=== PATIENT | female | born 1955 | race Caucasian/White ===

== ENCOUNTER → 2017-01-19 | Outpatient (CLI) | payer OTHER ==
--- NOTE | 2017-01-19 11:46 | KCIC ---
PROCEDURE Bilateral digital mammogram with CAD HISTORY Routine screening TECHNIQUE Bilateral digital routine views were obtained with computer-aided detection. COMPARISON December 17, 2014 FINDINGS Density B: Mixed fatty and fibroglandular tissue. There is no suspicious mass, calcifications or areas of architectural distortion. IMPRESSION No suspicious findings. [Recommend routine screening mammography in one year.] This study was interpreted with the benefit of Computerized Aided Detection (CAD). Mammography is not 100% sensitive in detecting breast cancer. Therefore, a self breast exam and a clinical breast exam are very important. A negative mammogram does not negate a clinically suspicious finding and should not result in a delay in biopsying a clinically suspicious abnormality. BI-RADS category 1: Negative. Electronically signed by: Shawn Rene MD (Jan 19, 2017 11:44:49)
== END | disposition home or self-care (01) ==
LOC: KCIC MAMMO 10:17
PROVIDERS: ATTEND Internal Medicine
DX: Z12.31 Encounter for screening mammogram for malignant neoplasm of breast (principal)
CPT/HCPCS: G0202; 77067

== ENCOUNTER → 2017-02-01 | Outpatient (CLI) | payer OTHER ==
--- NOTE | 2017-02-02 23:14 | RESP ---
DATE OF SERVICE: 02/01/2017 ATTENDING PHYSICIAN: Dr. Fausto Ruano. The patient's FVC was 2.59, which is 98% predicted, FEV1 1.44, which is 71% predicted. The FEV1/FVC ratio was reduced. There was no response to bronchodilators. Lung volumes showed total lung capacity of 155% predicted and residual volume was 275% predicted. Diffusion capacity was 92% predicted. IMPRESSION: 1. Moderate obstructive airway disease. 2. No response to bronchodilators. 3. Lung volumes consistent with hyperinflation and air trapping. 4. Normal diffusion capacity. LORENA BRADSHAW MD DR: DALLIN/izzy JOB#: [id number] / [id number] [facility] FAUSTO RUANO MD MTDD
== END | disposition home or self-care (01) ==
LOC: PF 07:53
PROVIDERS: ATTEND Internal Medicine
DX: R06.02 Shortness of breath (principal)
CPT/HCPCS: 94060; 94729

== ENCOUNTER → 2017-08-16 | Outpatient (CLI) | payer OTHER ==
[2017-05-03 11:00] VITALS: BP 137/62
[~2017-08-16] MED LIST: AMOX1TAB61 PO; BUDE0.25 IH; BUDE10.2 IH; CALC-98 PO; CINN500C2 PO; CYAN2500 SL; FLUT9.9S NS; HYDR12.58 PO; LISI10TA2 PO; MONT10TA9 PO; MULT1TAB52 PO; PANT20TA2 PO; PROAIR HFA8.5 GM INH; SIMV10TA3 PO; VITA1TAB PO; VITA400C36 PO
--- NOTE | 2017-08-16 10:16 | KCIC ---
COMPLETE ABDOMINAL ULTRASOUND Clinical History: Liver lesion seen on CT. Comparison: CT abdomen and pelvis with contrast, May 01, 2017. Technique: Sonographic examination of the abdomen was performed and multiple grayscale and color Doppler static images were obtained. Findings: Most of the liver is visualized and is normal in echotexture. The liver measures 15 cm. There is a hyperechoic lesion in the left hepatic lobe likely corresponding to the finding on CT. The lesion measures 9 x 6 mm. Portal flow is hepatopetal. The common bile duct is normal in caliber, measuring 3 mm in diameter. The gallbladder wall is normal. Per report, sonographic Albert sign is negative. There is no cholelithiasis or pericholecystic fluid. The pancreas and the abdominal aorta are not well visualized due to overlying bowel gas. The right kidney is normal in echotexture and measures 10.8 cm. The left kidney is normal in echotexture and measures 10.7 cm. Corticomedullary differentiation is preserved. There is no hydronephrosis. The spleen is not enlarged, measuring 10.4 cm. IVC is unremarkable. IMPRESSION: Lesion in the left hepatic lobe is stable in size and is hyperechoic on ultrasound. Although the ultrasound appearance is nonspecific, common benign etiology is a hemangioma. Consider ultrasound follow-up in 6-12 months to document stability. Electronically signed by: Te Echevarria MD (08/16/2017 10:13 AM) [id number]
== END | disposition home or self-care (01) ==
LOC: KCIC US 07:43
PROVIDERS: ATTEND Internal Medicine
DX: K76.9 Liver disease, unspecified (principal)
CPT/HCPCS: 76700

== ENCOUNTER → 2018-01-21 | Outpatient (CLI) | payer OTHER | END | disposition home or self-care (01) | LOC: KCIC MAMMO 12:22 | DX: Z12.31 Encounter for screening mammogram for malignant neoplasm of breast (principal) | CPT/HCPCS: 77063; 77067 ==

== ENCOUNTER → 2018-03-07 | Outpatient (CLI) | payer OTHER | END | disposition home or self-care (01) | LOC: KCIC US 07:47 | DX: K76.0 Fatty (change of) liver, not elsewhere classified (principal); I70.0 Atherosclerosis of aorta; D73.89 Other diseases of spleen | CPT/HCPCS: 76700 ==

== ENCOUNTER → 2018-03-25 | Outpatient (CLI) | payer OTHER ==
[2018-03-25 12:46] LABS: ISTAT CREATININE 0.5 mg/dL (0.6-1.1)
[2018-03-25] MEDS: IOHEXOL 300 MG/ML 100ML VIAL. IV (13:01)
== END | disposition home or self-care (01) ==
LOC: KCIC CT 11:31
DX: K76.89 Other specified diseases of liver (principal); K57.30 Diverticulosis of large intestine without perforation or abscess without bleeding; I70.0 Atherosclerosis of aorta
CPT/HCPCS: 74160; 82565; Q9967

== ENCOUNTER → 2019-01-27 | Outpatient (CLI) | payer OTHER ==
[2017-05-03 11:00] VITALS: BP 137/62
[~2019-01-27] MED LIST changes: +ALBU2.5V8 INH; -PROAIR HFA8.5 GM INH
--- NOTE | 2019-01-27 14:21 | KCIC ---
Bilateral digital screening mammograms with 3-D tomosynthesis: Reason for examination: Routine screening. Comparison is made to previous studies dated 01/21/2018 and 01/19/2017. Bilateral mammograms in CC and oblique projections were obtained with 2-D imaging and 3-D tomosynthesis imaging on a Siemens Inspiration unit and reviewed on the workstation. Interpretation was made with the benefit of CAD. The skin and nipples show no abnormalities. No abnormal axillary lymph nodes are seen. The breast parenchyma shows scattered fatty and fibroglandular density. (Breast density: Category B.) There continues to be a small nodular parenchymal density at the 10:00 B position of the right breast. There are no new dominant masses, suspicious calcifications or architectural distortion. Benign calcifications are present. Biopsy clips remain present on the left. Impression: No evidence of malignancy. Recommend routine screening. BI-RAD Category 2: Benign. "Our facility is accredited by the [employer] Mammography Program." This patient's information has been entered into a reminder system for the patient to be notified with the results of her examination and a target date for the next mammogram. Electronically signed by: Deisy Perez MD (01/27/2019 2:18 PM) [id number]
== END | disposition home or self-care (01) ==
LOC: KCIC MAMMO 12:48
PROVIDERS: ATTEND Internal Medicine
DX: Z12.31 Encounter for screening mammogram for malignant neoplasm of breast (principal)
CPT/HCPCS: 77063; 77067

== ENCOUNTER → 2019-03-17 | Outpatient (CLI) | payer OTHER ==
[2017-05-03 11:00] VITALS: BP 137/62
[~2019-03-17] MED LIST changes: +MONT10TA49 PO; -MONT10TA9 PO
--- NOTE | 2019-03-17 16:23 | KCIC ---
Bone densitometry 03/17/2019 10:30 AM Indication: Osteopenia, steroid use. Loss of height. Comparison Study: Bone densitometry December 17, 2014. Discussion: Bone Densitometry was performed with dual photon absorption of the lumbar spine and left proximal femur. Lumbar Spine: Bone average density is 0.810g/cm2 for L1-L4. T-Score is -2.2. (Comparison dated unavailable) Left proximal femur: Bone average density is 0.715g/cm2. T-Score is -1.9. (Prior T score -1.6) IMPRESSION: Osteopenia of the lumbar spine and proximal left femur. Fracture risk is considered high Note: Definitions established by the World Health Organization: Normal: T-score is -1.0 or above. Osteopenia: T-score is between -1.0 and -2.5. Osteoporosis: T-score is -2.5 or below. Electronically signed by: Yevgeniy Luz MD (03/17/2019 4:21 PM) [email or web address]
== END | disposition home or self-care (01) ==
LOC: KCIC DEXA 10:13
PROVIDERS: ATTEND Internal Medicine
DX: M85.88 Other specified disorders of bone density and structure, other site (principal); Z79.52 Long term (current) use of systemic steroids
CPT/HCPCS: 77080

== ENCOUNTER → 2019-05-23 | Outpatient (CLI) | payer OTHER, MEDICARE ==
[2017-05-03 11:00] VITALS: BP 137/62
--- NOTE | 2019-05-23 16:17 | KCIC ---
MRI Lumbar Spine without contrast History: Low back pain, right leg pain, previous surgery many years ago Technique: Multiplanar, multi sequential noncontrast MR imaging was performed of the lumbar spine. Comparison: None Findings: There is mild motion. There appears to be transitional anatomy of the lumbar spine. For the purpose of this report, most inferior fully formed intervertebral disc space is considered L5-S1 with assumption of 5 lumbar type vertebral bodies. There is a rudimentary intervertebral disc space at what is considered S1-S2. There is negligible anterior spondylolisthesis L4-5. Conus terminates at the superior aspect of L1. There is mild superior endplate concavity/Schmorl's node S1. There is small hemangioma of L3 vertebral body. There is mild L5-S1 degenerative disc disease, mild disc desiccation of more superior levels. There are posterior and anterior annular tears L2-L3. There is no significant marrow edema. L1-L2: Neural foramina and spinal canal are adequate. L2-L3: There is mild buckling of the ligamentum flavum and facet degenerative change. Neural foramina and spinal canal are adequate. L3-L4: Spinal canal is adequate. There is minimal buckling of the ligamentum flavum. Neural foramina are adequate. L4-L5: There is mild buckling of the ligamentum flavum and facet degenerative change. Neural foramina are adequate. There is minimal narrowing of the far lateral recesses greater on the left. Central canal is adequate. L5-S1: There is left laminectomy defect. There is very minimal posterior bulge. Spinal canal is overall adequate. There is mild buckling of the ligamentum flavum on the right. Neural foramina are overall adequate. S1-S2: Spinal canal and neural foramina are adequate. Impression: 1. There is transitional anatomy of the lumbar spine as stated, most inferior fully formed intervertebral disc space considered L5-S1 for this report. There is no significant lumbar spinal stenosis, minimal narrowing of the lateral recesses greater on the left at what is considered L4-5. There is mild degenerative disc disease at what is considered L5-S1. Electronically signed by: Baljit Beck MD (05/23/2019 4:14 PM) [email or web address]
== END | disposition home or self-care (01) ==
LOC: KCIC MRI 15:24
PROVIDERS: ATTEND Internal Medicine
DX: M43.16 Spondylolisthesis, lumbar region (principal); M51.37 Other intervertebral disc degeneration, lumbosacral region; M51.27 Other intervertebral disc displacement, lumbosacral region; M47.816 Spondylosis without myelopathy or radiculopathy, lumbar region; M53.3 Sacrococcygeal disorders, not elsewhere classified
CPT/HCPCS: 72148

== ENCOUNTER → 2019-06-06 | Outpatient (CLI) | payer OTHER, MEDICARE ==
[2017-05-03 11:00] VITALS: BP 137/62
--- NOTE | 2019-06-06 17:22 | KCIC ---
Examination: Ultrasound posterior right calf HISTORY: History of knee pain COMPARISON: None available Findings/ impression: Ultrasound of the posterior right calf region demonstrates no evidence of fluid collection or Foley's cyst. Electronically signed by: Abdiel Graham MD (06/06/2019 5:20 PM) [email or web address]
== END | disposition home or self-care (01) ==
LOC: KCIC US 15:29
PROVIDERS: ATTEND Internal Medicine
DX: M25.561 Pain in right knee (principal)
CPT/HCPCS: 76881

== ENCOUNTER → 2019-09-04 | Outpatient (CLI) | payer OTHER, MEDICARE ==
[2017-05-03 11:00] VITALS: BP 137/62
[~2019-09-04] MED LIST changes: +DULO20CA PO; +GABA600T7 PO; +LEFL10TA13 PO; +PRED1TAB3 PO; +SIMV10TA15 PO; -SIMV10TA3 PO; +VITA-8 PO; -VITA400C36 PO
--- NOTE | 2019-09-04 21:27 | PAIN ---
DATE OF SERVICE: 09/04/2019 INITIAL CONSULTATION FOR PAIN CLINIC CHIEF COMPLAINT: Right foot pain. HISTORY OF PRESENT ILLNESS: This is a 64-year-old female who presents with history of pain in the right foot, also in the back and legs about 05/08. The patient developed a shingles rash after the pain began and had significant radicular pain; however, this is resolved after some oral steroids as well as oral antivirals, and the only pain she has now is in the foot itself with walking, standing, changing positions, putting her weight on her right foot. She feels it is on the ball of the foot on the plantar surface and feels like there are gravel or sharp items under her foot when she is standing. She has been favoring her foot significantly now for the past month or so. The patient did have an MRI scan of the lumbar spine showing previous laminectomy defect at L5-S1 with very minimal posterior bulge, the spinal canal overall adequate. Mild buckling ligamentum flavum on the right, but neural foramina overall adequate as well. At L4-L5 shows mild buckling of ligamentum flavum and facet degenerative change, neural foramina are adequate as well; minimal narrowing at the far lateral recesses greater on the left. Central spinal canal is adequate also. The patient rates the pain is in the foot itself with weightbearing, but also present without weightbearing sometimes is excruciating, especially at night. The patient reports it is constant, shooting, tingling with numbness in the foot and sometimes into the lateral aspect of the ankle. The patient reports it is a disability 0-10, 10 being the worst, is a 2 with family home responsibilities, 8 with recreation and occupation, 5 with social activity, 6 with sexual behavior, 2 with self-care and 7 with life support activities. The patient has tried duloxetine as well as gabapentin, both of which decreased the pain mildly, but only mildly soon as she is walking on again it is much more painful. The patient reports it awakes her from sleep at least once a night. It does not affect her bowel or bladder control, but does affect her ability to walk significantly. She is not using any assistive devices, however, at this time. The patient reports that the rash has cleared up from her right approximately L5-S1 dermatomal distribution from her shingles outbreak, and again this was in May and the pain in the upper leg and buttocks is gone. The pain now is only in the foot and ankle. PAST MEDICAL HISTORY: Significant for COPD, history of cigarette smoking, quit 3 years ago, skin cancer 2019, history of hypertension. PREVIOUS SURGERY: Include L5 diskectomy for a lumbar herniated disk about 40 years ago. CURRENT MEDICATIONS: Include lisinopril, simvastatin, montelukast, gabapentin, prednisone, Symbicort inhaler, leflunomide, and Cymbalta. ALLERGIES: THE PATIENT IS ALLERGIC TO PENICILLIN AND PERCODAN. FAMILY HISTORY: Significant for heart disease and arthritis. SOCIAL HISTORY: The patient drinks alcohol about a glass of wine a night, does not smoke, quit about 3 years ago. Do not use any illegal, illicit or recreational drugs. She is , lives with her spouse, lives locally in [place], [place]. REVIEW OF SYSTEMS: The patient's review of systems is positive for those items mentioned in history of present illness. All systems reviewed and otherwise negative. It is complete, full and well documented on the patient's chart. PHYSICAL EXAMINATION: VITAL SIGNS: The patient's blood pressure 106/46, pulse 91, respirations 18, temperature 98.1 degrees Fahrenheit, height is 4 feet 9 inches, weight is 138 pounds. GENERAL: The patient is awake, alert, oriented, appropriate, very pleasant demeanor. HEENT: Head shows normocephalic, atraumatic. Extraocular movements are intact and symmetrical. Oral cavity: Mucous membranes moist and pink. Dentition is intact. NECK: Shows anterior throat supple without palpable lymphadenopathy noted. Swallow reflex symmetrical. CHEST: Shows normal on inspection. Breath sounds clear to auscultation bilaterally. HEART: Shows S1, S2 clear. No murmurs auscultated. ABDOMEN: Soft, nontender, nondistended. No palpable organomegaly is noted. No rebound or guarding demonstrated. BACK: Shows spine grossly in the midline, normal-appearing cervical lordotic curvature, thoracic kyphotic curvature and lumbar lordotic curvature. Well-healed surgical scars noted in the lumbar distribution. Lumbar paraspinous muscle shows symmetrical on inspection. No rashes are demonstrated. No residual from rashes in the area of the shingles report that are present as well. No atrophy, hypertrophy, no asymmetry. The patient has good rotational motion of lumbar spine, both laterally as well as extension and flexion without significant difficulty. EXTREMITIES: The patient's lower extremities show deep tendon reflexes at 2+ in the patella, 1+ tendo-calcaneus tendons. Motor exam is strong with approximately 4/5 on the right with dorsiflexion and extension, 5/5 on the left. The patient's right foot compared to the left shows symmetrical, no evidence of atrophy, hypertrophy, slightly reddish ruborous discoloration on the metatarsal heads on the plantar surface of the right foot. She is very tender with palpation in the 1st, 2nd and 3rd metatarsal heads to the medial aspect of the foot. No tenderness over the arch of the heel with direct palpation. Left side is negative and without pain with palpation throughout the left foot. Peripheral pulses are 2+ in the posterior tibial and dorsalis pedis pulses. No significant peripheral edema is noted bilaterally. Lower extremities are warm and dry to touch, equal in color and appearance. The patient is able to stand, stand on her toes, had difficulty with walking; she does favor her right lower extremity fairly significantly with pain reported on the sole of the foot with ambulation. IMPRESSION: 1. This is a 64-year-old female with approximate 3-month history of pain in the right foot, status post shingles outbreak, which has resolved now without any residual postherpetic neuralgia at this time. 2. Significant pain in the right foot over the metatarsal heads with weightbearing. 3. Chronic obstructive pulmonary disease. 4. Hypertension. PLAN: Options were discussed with the patient and the patient's spouse who accompanied her to visit today including conservative medical managements, physical therapies and interventional techniques, and I am suggesting that she see a risk reduction counselor regarding the significant right foot pain. Her enologist by her report has a bone scan ordered for her right foot, but not for about another month away or 3 weeks away. She would like to see risk reduction counselor in the meantime, we will make those arrangements for her in the meantime. SHALONDA ZELAYA MD DR: PARISA/izzy JOB#: [id number] / [id number] FAUSTO Ferro MD
== END | disposition home or self-care (01) ==
LOC: PNCL 13:04
PROVIDERS: ATTEND Anesthesiology
DX: M79.671 Pain in right foot (principal); B02.29 Other postherpetic nervous system involvement; J44.9 Chronic obstructive pulmonary disease, unspecified; I10 Essential (primary) hypertension; Z88.0 Allergy status to penicillin; Z88.8 Allergy status to other drugs, medicaments and biological substances; Z79.899 Other long term (current) drug therapy; Z87.891 Personal history of nicotine dependence; Z85.828 Personal history of other malignant neoplasm of skin
CPT/HCPCS: G0463

== ENCOUNTER → 2019-09-11 | Outpatient (CLI) | payer OTHER, MEDICARE ==
[2017-05-03 11:00] VITALS: BP 137/62
--- NOTE | 2019-09-12 11:16 | KCIC ---
MR of the right calf HISTORY: Right lower leg pain. Pain from the knee through the ankle. Pain since May. TECHNIQUE: Routine multiplanar sequences are obtained. FINDINGS: No evidence of acute fracture. No acute bone marrow edema or periosteal reaction. No aggressive bone destruction. Mild patchy muscle edema within the peroneal muscles and posterior compartment muscles. No evidence of muscle tear, fluid collection or hematoma. Partially visualized small joint effusion at the knee. IMPRESSION: 1. There is mild patchy muscle edema of doubtful significance. This could be exertional. 2. Partially visualized suprapatellar joint effusion. Electronically signed by: Rosas Brito MD (09/12/2019 11:13 AM) [email or web address]
== END | disposition home or self-care (01) ==
LOC: KCIC MRI 15:50
PROVIDERS: ATTEND Internal Medicine
DX: M25.461 Effusion, right knee (principal)
CPT/HCPCS: 73718

== ENCOUNTER → 2019-10-27 | Outpatient (CLI) | payer MEDICARE, OTHER ==
[2017-05-03 11:00] VITALS: BP 137/62
[~2019-10-27] MED LIST changes: +IOHEXOL 180 MG/ML 10 ML VIAL. ONE; +methylPREDNISolone ACETATE 40 MG/ML VIAL. ONE; +methylPREDNISolone ACETATE 80 MG/ML VIAL. ONE
--- NOTE | 2019-10-27 12:11 | PAIN ---
DATE OF SERVICE: 10/27/2019 PROGRESS NOTE FOR PAIN CLINIC DIAGNOSES: 1. Lumbar radiculopathy with lumbar post-laminectomy syndrome. 2. Post-herpetic neuralgia, right lower extremity. HISTORY OF PRESENT ILLNESS: The patient is a 64-year-old female who returns for followup status post initial evaluation. We had referred her to a jr. java developer, however, she has not made it to a equipment application specialist yet as there was some question of complex regional pain syndrome of the right lower extremity; however, she has only symptom of pain and previous injury in the right leg without any other findings consistent with complex regional pain syndrome at this time. The patient reports she is still having pain in the right leg and calf as well as in the foot, especially in the metatarsals and the ankle of the right foot as previously. The patient reports pain is 7-8 on a scale of 10 at its worst over the past week, 4 on average, 0 at its least and is a 4 today. The patient reports it is worse with walking, standing, changing positions, but she still continues to do this without difficulty with sleeping, does not awaken her from sleep. She has been taking gabapentin at night, which has helped her sleep as well, but she feels very foggy and hungover the next day. The patient reports no new motor or sensory deficits, no new changes, reports no swelling of the leg or the foot. She had a bone scan performed at outside facility and we are still waiting for results of this, which is pending at time of this dictation. PHYSICAL EXAMINATION: VITAL SIGNS: The patient's blood pressure 120/69, pulse 80, respirations 16, temperature 98.7 degrees Fahrenheit, weight is 141 pounds. GENERAL: The patient is awake, alert, oriented, appropriate, very pleasant demeanor. HEENT: Shows normocephalic, atraumatic. Extraocular movements are intact and symmetrical. Oral cavity: Mucous membranes moist and pink. Dentition is intact. NECK: Shows anterior throat supple without palpable lymphadenopathy noted. Swallow reflex symmetrical. CHEST: Shows normal on inspection. Breath sounds are clear bilaterally. HEART: Shows S1, S2 clear. No murmurs auscultated. ABDOMEN: Soft, nontender, nondistended. BACK: Shows spine grossly in the midline. Slight exaggeration of thoracic kyphosis and minor flattening of lumbar lordotic curvature with well-healed surgical scar noted in the lumbar distribution. Lumbar paraspinous muscle shows symmetrical on inspection, with very minor tenderness in the inferior aspect of the lumbar paraspinous musculature bilaterally. The patient has good rotational motion of lumbar spine, both laterally as well as extension and flexion without difficulty. EXTREMITIES: Lower extremities show deep tendon reflexes 2+ in the patellar, 1+ tendo-calcaneus tendons. Motor exam is 5/5 with dorsiflexion, extension, quadriceps and hamstring flexion are 4/5, but symmetrical and equal bilaterally. The patient has some significant tenderness in the right metatarsal heads both medially as well as inferiorly and superiorly as well as the medial greater than lateral aspect of the foot and the ankle as well. No discoloration is noted. No allodynia and no hyperesthesia. The patient is wearing socks and shoes and warmup stretch exercise pass with tight [place] to her leg without difficulty or allodynia findings. No mottling, no discoloration. Right lower extremity appears symmetrical to the left lower extremity in color and appearance as well. Peripheral pulses are 1+ posterior tibia. No peripheral edema bilaterally. Options were discussed with the patient. The patient's old chart was reviewed as her current medication regimen updated. Current review of systems updated today as well. We discussed options in significant detail regarding sympathetic lumbar block as well as lumbar epidural steroid injection. The patient would still like to see a equipment application specialist and we will try a lumbar epidural steroid injection today to see if this may have some radicular improvement in the right lower extremity. Risks were discussed including but not limited to bleeding, infection, possibility of epidural hematoma, subsequent neurological compromise, dural puncture, headaches, spinal cord and/or nerve damage, side effects of steroid medication and poor results regarding pain control. The patient understands and wished to proceed. The patient will return to clinic in approximately 2 weeks for followup. She was counseled as to return appointment, activity level and side effects to be aware of. DIAGNOSES: Lumbar radiculopathy with lumbar post-laminectomy syndrome. PROCEDURE: Lumbar epidural steroid injection, translaminar approach L5-S1 level using C-arm fluoroscopic guidance under sterile prep and drape using local anesthetic. MEDICATION INJECTED: A total of 120 mg Depo-Medrol plus 10 mL of preservative-free normal saline and 2 mL of contrast. CONDITION AT DISCHARGE: Stable. The patient tolerated the procedure well, had no complications. SHALONDA ZELAYA MD DR: PARISA/izzy JOB#: [id number] / [id number]
== END ==
LOC: PNCL 09:20
PROVIDERS: ATTEND Anesthesiology
DX: M54.16 Radiculopathy, lumbar region (principal); M96.1 Postlaminectomy syndrome, not elsewhere classified
CPT/HCPCS: 62323; J1030; J1040; Q9965

== ENCOUNTER → 2020-03-21 | Outpatient (CLI) | payer MEDICARE, OTHER ==
[2017-05-03 11:00] VITALS: BP 137/62
[~2020-03-21] MED LIST changes: -IOHEXOL 180 MG/ML 10 ML VIAL. ONE; +MULT-445 PO; -MULT1TAB52 PO; -methylPREDNISolone ACETATE 40 MG/ML VIAL. ONE; -methylPREDNISolone ACETATE 80 MG/ML VIAL. ONE
--- NOTE | 2020-03-22 10:05 | KCIC ---
Bilateral digital screening mammograms with 3-D tomosynthesis: Reason for examination: Routine screening. Comparison is made to previous studies dated back to 12/24/2015. Bilateral mammograms in CC and oblique projections were obtained with 2-D imaging and 3-D tomosynthesis imaging on a Siemens Inspiration unit and reviewed on the workstation. Interpretation was made with the benefit of CAD. The skin and nipples show no abnormalities. No abnormal axillary lymph nodes are seen. The breast parenchyma shows scattered fatty and fibroglandular density. (Breast density: Category B.) There continues to be a small circumscribed nodule at the 10:00 B position of the right breast which is stable. There are no new dominant masses, suspicious calcifications or architectural distortion. Benign calcifications are present. Biopsy clips are present on the left. Impression: No evidence of malignancy. Recommend routine screening. BI-RAD Category 2: Benign. "Our facility is accredited by the [employer] Mammography Program." This patient's information has been entered into a reminder system for the patient to be notified with the results of her examination and a target date for the next mammogram. Electronically signed by: Deisy Perez MD (03/22/2020 10:02 AM) [email or web address]
== END | disposition home or self-care (01) ==
LOC: KCIC MAMMO 15:03
PROVIDERS: ATTEND Internal Medicine
DX: Z12.31 Encounter for screening mammogram for malignant neoplasm of breast (principal); N64.89 Other specified disorders of breast
CPT/HCPCS: 77063; 77067

== ENCOUNTER → 2020-03-22 | Outpatient (CLI) | payer MEDICARE, OTHER ==
[2017-05-03 11:00] VITALS: BP 137/62
--- NOTE | 2020-03-22 16:17 | KCIC ---
EXAMINATION: MRI right lower extremity without contrast INDICATIONS: Right knee pain. [place] a pop and posterior lateral right knee 11 months ago. Continued pain. TECHNIQUE: Multiplanar multisequence MRI of the right knee was obtained without contrast. COMPARISON: Right knee radiograph 03/08/2020. FINDINGS: MENISCI: The medial and lateral menisci are intact. LIGAMENTS: The anterior and posterior cruciate ligaments are intact. The medial collateral ligament is intact. The conjoined tendon is increased in signal with mild surrounding edema, suspicious for partial tear. Popliteus tendon and iliotibial band are intact. EXTENSOR MECHANISM: The quadriceps and patellar tendons are intact. Fat pads are normal. Retinacula are intact. BONES AND CARTILAGE: No acute fracture. Marrow signal is normal. Articular cartilage is intact without discrete defect. OTHER: There is a small joint effusion. Small leaking Foley cyst. Remaining tendons and muscles are normal in appearance. IMPRESSION: 1. Mild grade 2 injury of the conjoined tendon of the lateral collateral ligament complex with mild surrounding soft tissue edema. 2. Small joint effusion. Leaking Foley cyst. Electronically signed by: Lorena Pressley MD (03/22/2020 4:14 PM) [place] [id number]
== END | disposition home or self-care (01) ==
LOC: KCIC MRI 13:43
PROVIDERS: ATTEND Orthopaedic Surgery
DX: S76.801A Unspecified injury of other specified muscles, fascia and tendons at thigh level, right thigh, initial encounter (principal); R60.0 Localized edema; M71.21 Synovial cyst of popliteal space [Baker], right knee; M25.461 Effusion, right knee; X58.XXXA Exposure to other specified factors, initial encounter; Y93.89 Activity, other specified; Y92.89 Other specified places as the place of occurrence of the external cause; Y99.8 Other external cause status
CPT/HCPCS: 73721

== ENCOUNTER → 2020-06-18 | Outpatient (CLI) | payer MEDICARE ==
[2017-05-03 11:00] VITALS: BP 137/62
--- NOTE | 2020-06-18 10:22 | KCIC ---
MRI lumbar spine without contrast 10/18/2019 CLINICAL HISTORY: Low back pain with bilateral hip pain. TECHNIQUE: Unenhanced T1-weighted and T2-weighted sagittal and axial and inversion recovery sagittal images of the lumbar spine were obtained. FINDINGS: Comparison study is dated 05/23/2019. The patient appears to have transitional vertebral anatomy. For the purposes of this report 5 lumbar vertebra have been assumed. The last reasonly well-defined lumbar-appearing disc space will be referred to as L5-S1. A hypoplastic disc is seen at S1-2. Very mild S-shaped curvature of the thoracolumbar spine is seen. Degenerative signal changes are seen involving all the disks of the lumbar spine. Degenerative signal changes are seen within the marrow surrounding these discs. The conus medullaris is normal morphology, position, and signal characteristics. At the L1-2, L2-3 and L3-4 disc spaces there are minimal to mild generalized disc bulges. Degenerative changes are seen involving the facet joints bilaterally. There is mild ligamentum flavum hypertrophy bilaterally. These findings when combined do not result in significant central spinal canal or neural foraminal stenosis. At the L4-5 disc space there is a mild generalized disc bulge. Degenerative changes are seen involving the facet joints bilaterally. There is moderate ligamentum flavum hypertrophy bilaterally. These findings when combined result in mild central spinal canal stenosis. No neural foraminal stenosis is seen. At the L5-S1 disc space, the patient is post left hemilaminotomy. There is a mild generalized disc bulge. Degenerative changes are seen involving the facet joints bilaterally. There is moderate right ligamentum flavum hypertrophy. These findings do not result in significant central spinal canal or neural foraminal stenosis. Since the previous examination there has been no significant interval change. IMPRESSION: 1. Post left hemilaminotomy at L5-S1. 2. The changes of degenerative disc disease are seen involving the lumbar spine. These findings result in mild central spinal canal stenosis at L4-5. No neural foraminal stenosis is seen. Electronically signed by: Miguelangel Fuller MD (06/18/2020 10:19 AM) [id number]
== END ==
LOC: KCIC MRI 08:31
PROVIDERS: ATTEND Internal Medicine
DX: M51.36 Other intervertebral disc degeneration, lumbar region (principal); M48.061 Spinal stenosis, lumbar region without neurogenic claudication
CPT/HCPCS: 72148

== ENCOUNTER → 2020-12-03 | Outpatient (CLI) | payer MEDICARE ==
[2017-05-03 11:00] VITALS: BP 137/62
[~2020-12-03] MED LIST changes: +CALC500T54 PO; +HYDR200T5 PO; +IOHEXOL 180 MG/ML 10 ML VIAL. ONE; +LACT1CAP6 PO; +LISI10TA16 PO; -LISI10TA2 PO; +LISI1TAB20 PO; +MECO10005 PO; +MULT-245 PO; +methylPREDNISolone ACETATE 40 MG/ML VIAL. ONE; +methylPREDNISolone ACETATE 80 MG/ML VIAL. ONE
--- NOTE | 2020-12-03 11:35 | PDOC ---
Progress Note - Pain Clinic Date of Service: DOS: DATE: 12/03/20 TIME: 11:32 Diagnosis: Dx: Lumbar radiculopathy with lumbar degenerative disease and lumbar postlaminectomy syndrome History or Present Illness: HPI: 65-year-old female returns to follow-up status post lumbar epidural steroid injection last seen October 2019. Patient did very well reports that she had near had a percent improvement with the injection in the low back and right lower extremity. Patient reports now over the past few months the pain is beginning to return in the low back she is recently seen her neurosurgeon who is recommending conservative therapies patient has been doing some stretching strength exercises on her own and some inversion table work but otherwise the pain is increasing in her low back and right lower extremity especially in the low back and right side posterior gluteus posterior lateral thigh posterior calf patient reports is in both of the groins as well at times with walking. Patient reports it is worse with standing walking changing positions better with sitting or laying down generally is not awaken her from sleep at night patient reports is an 8 on scale 10 is worse over the past week 7 on average 6 its least and is a 7 today patient describes the pain as aching and dull tight across the back can be constant with some radiation to the right lower extremity as previously. Patient reports no bowel or bladder incontinence or other complaints. Physical Exam: VS: Blood pressure is 137/70 respirations 20 temperature 98.6 F height is 4 foot 10 inches weight 151 pounds PE: PHYSICAL EXAMINATION: GENERAL: The patient is awake, alert, oriented, appropriate, very pleasant demeanor HEENT: Shows normocephalic, atraumatic. Extraocular movements are intact and symmetrical. Oral cavity: Mucous membranes moist and pink. Dentition is intact. NECK: Shows anterior throat supple without palpable lymphadenopathy noted. Swallow reflex symmetrical. CHEST: Shows normal on inspection. Breath sounds are clear bilaterally, no rales or rhonchi. HEART: Shows S1, S2 clear. No murmurs auscultated. ABDOMEN: Soft, nontender, nondistended, obese. No palpable organomegaly is noted. BACK: Shows spine grossly in the midline. Normal-appearing cervical lordotic curvature. There is increased thoracic kyphosis, some flattening of the lumbar lordotic curvature, with well-healed midline surgical scar noted. Lumbar paraspinous muscles show symmetrical on inspection, on palpation shows some moderate tenderness diffusely throughout the upper, middle and lower distribution of the paraspinous muscles bilaterally and also into the lower tho racic paraspinous musculature, firm and tender, but without specific trigger points, without radiation of pain. The patient has good rotational motion of the lumbar spine, both laterally as well as extension and flexion without significant difficulty. No tenderness over the spinous processes, sacrum or sacroiliac regions. EXTREMITIES: Lower extremities show deep tendon reflexes 2+ in the patellar and tendo calcaneus tendons. Motor exam is 5 on a scale of 5 with right dorsiflexion, extension, quadriceps and hamstring flexion and 5/5 on the left. Peripheral pulses are 1+ posterior tibial. No peripheral edema is noted bilaterally. Lower extremities are warm and dry to touch, equal in color and appearance. SKIN: Shows warm and dry, good turgor. No edema. No sores, rashes or bruising throughout. Procedure: Procedure: Options were discussed with the patient. Patient chart reviews her current medication regimen updated current review of systems updated today as well. We will proceed with a lumbar epidural steroid injection today with fluoroscopic guidance. Risks were discussed including but not limited to: Bleeding, infection, possibility of epidural hematoma and subsequent neurological compromise, dural puncture, headaches, spinal cord and/or nerve damage, side effects of steroid medication, and poor results regarding pain control. Patient understands and wished to proceed. Patient will return to clinic in approximate 2 weeks for follow-up, was counseled as to return appointment activity level and side effects to be aware of. Medication Injected: Med Injected: Procedure is lumbar epidural steroid injection under local anesthetic using sterile prep and drape at the L5-S1 level using C-arm fluoroscopic guidance in both AP and lateral views medications injected is 120 mg Depo-Medrol + 10 mL preservative-free normal saline and 2 mL contrast- condition at discharge is stable patient tolerated procedure well had no complications. Condition at Discharge: Condition at Discharge: Condition at discharge stable, patient already procedure well and had no complications SHALONDA ZELAYA MD Dec 03, 2020 11:35
--- NOTE | 2020-12-03 11:36 | PDOC4 ---
PROCEDURE Procedure Patient was consented for lumbar epidural steroid injection. Risks were dis cussed including but not limited to: Bleeding, infection, possibility of epidural hematoma and subsequent neurological compromise, dural puncture, headaches, spinal cord and/or nerve damage, side effects of steroid medication, and poor results regarding pain control. Patient understands and wished to proceed. Procedure is lumbar epidural steroid injection under local anesthetic using sterile prep and drape at the L5-S1 level using C-arm fluoroscopic guidance in both AP and lateral views medications injected is 120 mg Depo-Medrol + 10 mL preservative-free normal saline and 2 mL contrast- condition at discharge is stable patient tolerated procedure well had no complications. SHALONDA ZELAYA MD Dec 03, 2020 11:36
== END | disposition home or self-care (01) ==
LOC: PNCL 10:35
PROVIDERS: ATTEND Anesthesiology
DX: M51.16 Intervertebral disc disorders with radiculopathy, lumbar region (principal); M96.1 Postlaminectomy syndrome, not elsewhere classified; E78.00 Pure hypercholesterolemia, unspecified; I10 Essential (primary) hypertension; J43.9 Emphysema, unspecified; M81.0 Age-related osteoporosis without current pathological fracture; Z79.899 Other long term (current) drug therapy; Z98.890 Other specified postprocedural states; Z87.891 Personal history of nicotine dependence; Z88.0 Allergy status to penicillin; Z88.8 Allergy status to other drugs, medicaments and biological substances
CPT/HCPCS: 62323; J1030; J1040; Q9965

== ENCOUNTER → 2021-06-12 | Outpatient (CLI) | payer MEDICARE ==
[2017-05-03 11:00] VITALS: BP 137/62
[~2021-06-12] MED LIST changes: -IOHEXOL 180 MG/ML 10 ML VIAL. ONE; -methylPREDNISolone ACETATE 40 MG/ML VIAL. ONE; -methylPREDNISolone ACETATE 80 MG/ML VIAL. ONE
[2021-06-12 12:44] LABS: BASO % 1 % (0-3); EOS # 0.1 x10^3/uL (0.0-0.7); EOS % 2 % (0-3); HEMATOCRIT 34.9 % (36.0-47.0); HEMOGLOBIN 11.5 g/dL (12.0-15.5); LYMPH # 2.6 x10^3/uL (1.0-4.8); LYMPH % 39 % (24-48); MEAN CORPUSCULAR HEMOGLOBIN 25 pg (25-35); MEAN CORPUSCULAR HGB CONC 33 g/dL (31-37); MEAN CORPUSCULAR VOLUME 74 fL (79-100); MONO # 0.7 x10^3/uL (0.0-1.1); MONO % 11 % (0-9); NEUT # 3.1 x10^3/uL (1.8-7.7); NEUT % 48 % (31-73); PLATELET COUNT 394 x10^3/uL (140-400); RED BLOOD COUNT 4.69 x10^6/uL (3.50-5.40); RED CELL DISTRIBUTION WIDTH 17.6 % (11.5-14.5); WHITE BLOOD COUNT 6.6 x10^3/uL (4.0-11.0)
[2021-06-14 13:30] LABS: ANTITHROMBIN III SEE SEPARATE REPORT; FACTOR VIII ASSAY SEE SEPARATE REPORT; LUPUS ANTICOAGULANT SEE SEPARATE REPORT; PROTEIN C ACTIVITY SEE SEPARATE REPORT; PROTEIN S TOTAL SEE SEPARATE REPORT
[2021-06-14 13:31] LABS: CARDIOLIPIN ANTIBODIES SEE SEPARATE REPORT
== END ==
LOC: ONCLAB 11:57
PROVIDERS: ATTEND Internal Medicine Hematology & Oncology
DX: I81 Portal vein thrombosis (principal); Z88.0 Allergy status to penicillin
CPT/HCPCS: 36415; 81240; 81241; 85025; 85240; 85300; 85302; 85305; 85610; 86146; 86147

== ENCOUNTER → 2021-09-12 | Outpatient (CLI) | payer MEDICARE ==
[2017-05-03 11:00] VITALS: BP 137/62
[~2021-09-12] MED LIST changes: +CONTRAST GIVEN. MC PRN; -LISI1TAB20 PO; +LISI1TAB39 PO
[2021-09-12] MEDS: IOHEXOL 300 MG/ML 100ML VIAL. IV ONE (10:20)
--- NOTE | 2021-09-12 12:25 | KCIC ---
CT of the abdomen and pelvis with contrast 09/12/2021 12:13 PM Indication: PORTAL VEIN THROMBOSIS Comparison study: CT abdomen and pelvis March 25, 2018 Technique: Multidetector CT imaging of the abdomen and pelvis was performed following the administrat ion of IV contrast. Findings: Emphysematous changes noted in the lung bases. 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 This is new since March 05. Small hepatic hypodensities noted, likely cyst. Small renal cysts noted. Gallbladder , spleen, bilat eral adrenal glands and pancreas, are grossly unremarkable. There is no bowel obstruction. No evidence of acute inflammatory change involving visualized bowel i s identified. Appendix is visualized and unremarkable in appearance. Bladder is grossly unremarkable. No free fluid or free air is seen in the abdomen or pelvis. No acute osseous changes are identified . Impression: 1. 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 No acute intra-abdominal abnormality is identified CT DOSING PQRS STATEMENT: One or more of the following individualized dose reduction techniques were utilized for this examinat ion: 1. Automated exposure control 2. Adjustment of the mA and/or kV according to patient size 3. Use of iterative reconstruction technique Electronically signed by: Yevgeniy Luz MD (09/12/2021 12:22 PM) [id number]
== END ==
LOC: KCIC CT 09:23
PROVIDERS: ATTEND Internal Medicine Hematology & Oncology
DX: N28.1 Cyst of kidney, acquired (principal); I81 Portal vein thrombosis
CPT/HCPCS: 74177; 82565; Q9967

== ENCOUNTER → 2021-09-15 | Outpatient (CLI) | payer MEDICARE ==
[2017-05-03 11:00] VITALS: BP 137/62
[~2021-09-15] MED LIST changes: -CONTRAST GIVEN. MC PRN
== END ==
LOC: ONCLAB 11:46
PROVIDERS: ATTEND Internal Medicine Hematology & Oncology
DX: I81 Portal vein thrombosis (principal)
CPT/HCPCS: 36415; 85240

== ENCOUNTER → 2021-12-04 | Outpatient (CLI) | payer MEDICARE ==
[2017-05-03 11:00] VITALS: BP 137/62
--- NOTE | 2021-12-04 11:59 | KCIC ---
INDICATION: Screening for osteopenia/osteoporosis. Reason: POST MENOPAUSAL / Spl. Instructions: / H istory: COMPARISON: March 2019 TECHNIQUE: Bone densitometry was performed through the lumbar spine and proximal femur. IMPRESSION: Lumbar Spine: BMD: 0.8 T-Score: -2.2 Range: Osteopenic. Similar to prior. Proximal Femur: BMD: 0.74 T-Score: -1.7 Range: Osteopenic. Increased by 4 percent from prior. World Health Organization Criteria for Bone Density: T-Score: > -1.0: Normal Range < -1.0 to -2.5: Osteopenic Range < -2.5: Osteoporotic Range Electronically signed by: Stevan Bee MD (12/04/2021 11:57 AM) [id number]
--- NOTE | 2021-12-05 09:03 | KCIC ---
Bilateral digital screening 2-D and 3-D (digital breast tomosynthesis) mammogram: Reason for examination: Routine screening. Comparison: Mammograms fro 01/21/2018, 01/27/2019, and 1820. M Interpretation was made with the benefit of CAD. FINDINGS: Breast density: Category B. There are scattered areas of fibroglandular density. No new suspicious breast mass, malignant appearing calcifications, or architectural distortion is see n. There is a small oval circumscribed mass in the 9:00 position right breast middle depth which is s table. Again seen are 2 biopsy markers in the left breast. IMPRESSION: No evidence of malignancy. Assessment: BI-RADS 2. Benign findings. Recommendation: Routine screening mammograms. The patient will receive a letter with the results in the mail. Patient information will be entered i nto the mammography reminder system with a target recall date for the next mammogram. A reminder osito er will be generated. Electronically signed by: Katerina Olsen MD (12/05/2021 9:00 AM) [id number]
== END ==
LOC: KCIC MAMMO 10:40
PROVIDERS: ATTEND Internal Medicine
DX: Z12.31 Encounter for screening mammogram for malignant neoplasm of breast (principal); M85.89 Other specified disorders of bone density and structure, multiple sites; Z78.0 Asymptomatic menopausal state
CPT/HCPCS: 77063; 77067; 77080